=== PATIENT | female | born 1995 ===

== ENCOUNTER 2016-05-18 19:35 | Emergency (ER) | payer SELFPAY ==
[~2016-05-18] VITALS: Ht 157.5 cm; Wt 59.0 kg
[2016-05-18 19:41] VITALS: BP 119/71
== END 2016-05-18 20:37 | disposition left against medical advice (07) ==
LOC: EMS 19:37
DX: F41.9 Anxiety disorder, unspecified (principal); Z53.21 Procedure and treatment not carried out due to patient leaving prior to being seen by health care provider